=== PATIENT | female | born 1985 | race Two or more races ===

== ENCOUNTER → 2024-06-25 10:35 | Outpatient (REF) | payer BC, SELFPAY | LOC: RAD 10:35 | PROVIDERS: ATTENDING PHYSICIAN Physician Assistant | DX: M79.672 Pain in left foot (principal) | CPT/HCPCS: 73630 ==

== ENCOUNTER → 2025-07-21 10:54 | Outpatient (REF) | payer OTHER, SELFPAY ==
[2025-07-22 16:01] LABS: Mumps Virus IgG Positive
== END ==
LOC: OHS 10:54
PROVIDERS: ATTENDING PHYSICIAN Nurse Practitioner Family
DX: Z23 Encounter for immunization (principal)
CPT/HCPCS: 36415; 86480; 86735; 86765